=== PATIENT | male | born 1945 | race Caucasian/White ===

== ENCOUNTER 2024-10-10 17:31 | Inpatient (IN) | payer MEDICARE, SELFPAY ==
[~2024-10-10] VITALS: Ht 175.3 cm; Wt 99.0 kg
[2024-10-10 18:19] LABS: VENOUS BASE EXCESS -9.4 (-2.0-2.0); VENOUS O2 SATURATION 83.4 % (60.0-80.0); VENOUS PARTIAL PRESSURE CO2 39.4 mmHg (38.0-50.0); VENOUS PARTIAL PRESSURE O2 56.5 mmHg (30.0-50.0); VENOUS PH 7.254 UNITS (7.330-7.430); VENOUS STANDARD HCO3 16.8 MMOL/L; VENOUS TOTAL CO2 18.3 MMOL/L (24.0-28.0)
[2024-10-10 18:24] LABS: BASO % 0.2 % (0.0-1.0); EOS % 0.1 % (0.0-3.0); HEMATOCRIT 51.1 % (42.0-52.0); HEMOGLOBIN 17.3 g/dl (13.5-17.5); LYMPH # 0.7 10^3/uL (1.5-5.0); LYMPH % 4.9 % (24.0-44.0); MEAN CORPUSCULAR HGB CONC 33.9 g/dl (32.0-36.5); MEAN CORPUSCULAR VOLUME 94.6 fl (80.0-96.0); MONO # 1.5 10^3/uL (0.0-0.8); MONO % 9.8 % (2.0-8.0); NEUTROPHILS # 12.5 10^3/uL (1.5-8.5); NEUTROPHILS % 84.5 % (36.0-66.0); PLATELET COUNT, AUTOMATED 224 10^3/uL (150-450); WHITE BLOOD COUNT 14.8 10^3/uL (4.0-10.0)
[2024-10-10] MEDS: NS (Normal Saline) 0.9% 1,000 ML IV SCH (19:31)
[2024-10-10] MEDS: BOOSTRIX VACCINE (TETANUS/DIPHTH/ACEL. PERTUSSIS) 0.5ML SYR IM.IMMUN ONE (19:31)
[2024-10-10 19:55] LABS: KETONE, URINE AUTO RFX TRACE mg/dL (NEGATIVE); LEUKOCYTE ESTERASE UR AUTO RFX NEGATIVE (NEGATIVE); MUCUS, URINE RFX SMALL (NEGATIVE); NITRITE, URINE AUTO RFX NEGATIVE (NEGATIVE); RBC, URINE AUTO RFX 6 /HPF (0-3); SQUAM EPITHELIAL CELL UR AURFX 0 /HPF (0-6); WBC, URINE AUTO RFX 2 /HPF (0-3)
[2024-10-10] MEDS: CALCIUM GLUCONATE 1,000 MG in DEXTROSE 5% (D5W) MINI-BAG PLU 100 ML IV ONE (22:00)
[2024-10-10] MEDS: NS 500 ML IV ONE (22:00)
[2024-10-10 23:16] LABS: ETHYL ALCOHOL (ETHANOL) < 0.003 % (0.000-0.010)
[2024-10-10 23:18] LABS: SALICYLATE LEVEL < 3.0 MG/DL (<30)
[2024-10-10 23:29] LABS: OSMOLALITY SERUM 316 MOSM/KG (280-301)
[2024-10-10] MEDS ORDERED: CHOL25TA8 PO (23:34)
[2024-10-10] MEDS ORDERED: ATOR1TAB21 PO (23:34)
[2024-10-10] MEDS ORDERED: DICL100G10 TOP (23:34)
[2024-10-10] MEDS ORDERED: ELIQ5TAB PO (23:34)
[2024-10-10] MEDS ORDERED: VITA200012 PO (23:34)
[2024-10-10] MEDS ORDERED: CYAN100049 PO (23:34)
[2024-10-10] MEDS ORDERED: METF-415 PO (23:34)
[2024-10-10] MEDS ORDERED: METO50TA7 PO (23:34)
[2024-10-10] MEDS ORDERED: JARD1TAB3 PO (23:34)
[2024-10-10] MEDS ORDERED: REFR0.5D8 OU (23:34)
[2024-10-10] MEDS ORDERED: SEMA0.257 SQ (23:34)
[2024-10-10] MEDS ORDERED: HOME MED LIST COMPLETE! XX SCH (23:35)
[2024-10-10] MEDS ORDERED: MED REC COMMENT (23:35)
[2024-10-10 23:47] LABS: ALBUMIN 3.5 G/DL (3.2-5.2); ALKALINE PHOSPHATASE 77 U/L (40-129); ALT/SGPT 95 U/L (7.0-40); AST/SGOT 457 U/L (<34); BILIRUBIN,DIRECT 0.9 MG/DL (<0.4); BILIRUBIN,TOTAL 2.2 MG/DL (0.3-1.2); BLOOD UREA NITROGEN 51 MG/DL (9-23); CALCIUM LEVEL 8.8 MG/DL (8.3-10.6); CARBON DIOXIDE LEVEL 20 MMOL/L (20-31); CHLORIDE LEVEL 95 MMOL/L (98-107); CPK CREATINE PHOSPHOKINASE 18716 U/L (46-171); CREATININE FOR GFR 2.28 MG/DL (0.70-1.30); GLOMERULAR FILTRATION RATE 29.5 (>35); GLUCOSE, FASTING 457 MG/DL (74-106); MAGNESIUM LEVEL 2.5 MG/DL (1.8-2.4); POTASSIUM SERUM 4.8 MMOL/L (3.5-5.1); SODIUM LEVEL 132 MMOL/L (136-145); THYROID STIMULATING HORMONE 1.318 uIU/ML (0.55-4.78); TOTAL PROTEIN 6.6 G/DL (5.7-8.2)
[2024-10-11] VITALS (9 sets, daily range): BP systolic 117–160; BP diastolic 82–114; TEMP 98.2–98.6; O2SAT 86–94
[2024-10-11] MEDS ORDERED: ACETAMINOPHEN 325 MG TAB PO PRN (00:15)
[2024-10-11] MEDS ORDERED: LORazepam 2 MG TAB PO PRN (00:15)
[2024-10-11] MEDS ORDERED: MAALOX 30 ML SUSP *UDC PO PRN (00:15)
[2024-10-11] MEDS ORDERED: MOM 30ML SUSPENSION UDC PO PRN (00:15)
[2024-10-11] MEDS: THIAMINE 100 MG TAB PO SCH (01:01)
[2024-10-11] MEDS: LR 1,000 ML IV SCH ×2 (01:01→12:53)
[2024-10-11] MEDS: NS (Normal Saline) 0.9% 1,000 ML IV ONE (05:52)
[2024-10-11] MEDS ORDERED: GLUCAGON INJ 1MG VIAL SC PRN (06:00)
[2024-10-11] MEDS ORDERED: GLUCOSE 4 GM CHEW PO PRN (06:00)
[2024-10-11] MEDS ORDERED: DEXTROSE 50% 50ML SYRINGE IV PRN (06:00)
[2024-10-11] MEDS ORDERED: NS (Normal Saline) 0.9% 1,000 ML IV SCH (07:40)
[2024-10-11 08:01] LABS: HEMATOCRIT 50.3 % (42.0-52.0); HEMOGLOBIN 17.4 g/dl (13.5-17.5); MEAN CORPUSCULAR HEMOGLOBIN 32.8 pg (27.0-33.0); MEAN CORPUSCULAR HGB CONC 34.6 g/dl (32.0-36.5); MEAN CORPUSCULAR VOLUME 94.7 fl (80.0-96.0); PLATELET COUNT, AUTOMATED 183 10^3/uL (150-450); RED BLOOD COUNT 5.31 10^6/uL (4.30-6.10); WHITE BLOOD COUNT 12.1 10^3/uL (4.0-10.0)
[2024-10-11 08:13] LABS: INR 1.22; PARTIAL THROMBOPLASTIN TIME 28.1 SECONDS (24.8-34.2); PROTHROMBIN TIME 15.7 SECONDS (12.5-14.5)
[2024-10-11 08:24] LABS: ALBUMIN 3.3 G/DL (3.2-5.2); BILIRUBIN,TOTAL 1.7 MG/DL (0.3-1.2); C REACTIVE PROTEIN QUANTITATIV 23.81 MG/DL (<1.0); CALCIUM LEVEL 8.5 MG/DL (8.3-10.6); CK-MB VALUE MASS 38.5 NG/ML (<3.6); CREATININE FOR GFR 2.1 MG/DL (0.70-1.30); GLOMERULAR FILTRATION RATE 32.4 (>35); POTASSIUM SERUM 4.8 MMOL/L (3.5-5.1); TOTAL PROTEIN 6.6 G/DL (5.7-8.2)
[2024-10-11 08:33] LABS: PROCALCITONIN 1.13 ng/ml
[2024-10-11] MEDS: INSULIN LISPRO (NovoLOG) PER UNIT SC SCH ×2 (08:40→20:09)
[2024-10-11 08:41] LABS: MB/CK RELATIVE INDEX 0.34 (< OR =4)
[2024-10-11] MEDS: DOCUSATE SODIUM 100MG CAPSULE PO SCH (08:44)
[2024-10-11] MEDS: ATORVASTATIN 20 MG TAB PO SCH (08:45)
[2024-10-11] MEDS: CYANOCOBALAMIN 500 MCG TAB PO SCH (08:45)
[2024-10-11] MEDS: FOLIC ACID 1MG TAB PO SCH (08:45)
[2024-10-11] MEDS: APIXABAN 2.5 MG TAB (ELIQUIS) PO SCH (08:45)
[2024-10-11] MEDS: MULTIVITAMINS/MINERALS THERAP 1 TAB PO SCH (08:45)
[2024-10-11] MEDS: DAPAGLIFLOZIN PROPANEDIOL 10MG TABLET (FARXIGA) PO SCH (08:45)
[2024-10-11] MEDS: METOPROLOL TART 50 MG TAB PO SCH ×2 (08:45→21:00)
[2024-10-11] MEDS ORDERED: LanTUS (INSULIN GLARGINE INJ) 1 UNITS/0.01 ML SC SCH (09:00)
[2024-10-11 12:43] LABS: CK-MB VALUE MASS 48.8 NG/ML (<3.6)
[2024-10-11] MEDS: cefTRIAXone SOD 1 GM in DEXTROSE 5% (D5W) ADV/MINI-BAG 50 ML IV SCH (12:53)
[2024-10-11 13:03] LABS: MB/CK RELATIVE INDEX 0.44 (< OR =4)
[2024-10-11] MEDS: ASPIRIN 81MG ENTERIC TABLET PO SCH (13:55)
[2024-10-11] MEDS: DOXYCYCLINE HYCLATE 100MG TABLET PO SCH (13:55)
[2024-10-11] MEDS: LanTUS (INSULIN GLARGINE INJ) 1 UNITS/0.01 ML SC SCH (14:04)
[2024-10-11 14:37] LABS: CHOLESTEROL RISK RATIO 4.15 (<5); HDL CHOLESTEROL 35.9 MG/DL (>40); LDL CHOLESTEROL 68.7 MG/DL (<100); NON-HDL-C 113.1 MG/DL
[2024-10-11 14:49] LABS: HEMOGLOBIN A1c 7.6 % (4.0-6.0)
[2024-10-11] MEDS: hydrALAZINE 20MG/ML 1ML VIAL IV ONE (17:27)
[2024-10-11 18:33] LABS: ABG BASE EXCESS -3.3 (-2.0-2.0); ABG HCO3 17.5 MMOL/L (22.0-26.0); ABG O2 SATURATION 89.9 % (95.0-99.0); ABG PARTIAL PRESSURE CO2 23.6 mmHg (35.0-45.0); ABG STANDARD HCO3 21.5 MMOL/L. (22.0-26.0); ABG TOTAL CO2 18.2 MMOL/L (23.0-31.0); ABG pH (ARTERIAL) 7.488 UNITS (7.350-7.450)
[2024-10-11] MEDS: FUROSEMIDE 100MG/10ML VIAL IV ONE (21:23)
[2024-10-11 23:38] LABS: CALCIUM LEVEL 8.5 MG/DL (8.3-10.6); CK-MB VALUE MASS 27.4 NG/ML (<3.6); CREATININE FOR GFR 1.76 MG/DL (0.70-1.30); GLOMERULAR FILTRATION RATE 39.8 (>35); PHOSPHORUS LEVEL 4.6 MG/DL (2.4-5.1); POTASSIUM SERUM 4.2 MMOL/L (3.5-5.1)
[2024-10-11 23:57] LABS: MB/CK RELATIVE INDEX 0.39 (< OR =4)
[2024-10-12] VITALS (29 sets, daily range): BP systolic 100–136; BP diastolic 56–95; TEMP 98–99.2; O2SAT 85–98
[2024-10-12 03:46] LABS: HEMATOCRIT 47.5 % (42.0-52.0); HEMOGLOBIN 16.4 g/dl (13.5-17.5); MEAN CORPUSCULAR HEMOGLOBIN 32.3 pg (27.0-33.0); MEAN CORPUSCULAR HGB CONC 34.5 g/dl (32.0-36.5); MEAN CORPUSCULAR VOLUME 93.5 fl (80.0-96.0); PLATELET COUNT, AUTOMATED 222 10^3/uL (150-450); RED BLOOD COUNT 5.08 10^6/uL (4.30-6.10)
[2024-10-12 04:09] LABS: ALBUMIN 2.9 G/DL (3.2-5.2); BILIRUBIN,TOTAL 1.4 MG/DL (0.3-1.2); CALCIUM LEVEL 8.5 MG/DL (8.3-10.6); CREATININE FOR GFR 1.81 MG/DL (0.70-1.30); GLOMERULAR FILTRATION RATE 38.5 (>35); POTASSIUM SERUM 4.2 MMOL/L (3.5-5.1); TOTAL PROTEIN 6.1 G/DL (5.7-8.2)
[2024-10-12 04:22] LABS: MB/CK RELATIVE INDEX 0.32 (< OR =4)
[2024-10-12] MEDS ORDERED: FUROSEMIDE 40MG/4ML VIAL IV SCH (09:00)
[2024-10-12] MEDS ORDERED: LanTUS (INSULIN GLARGINE INJ) 1 UNITS/0.01 ML SC SCH (09:00)
[2024-10-12] MEDS: FUROSEMIDE 40MG/4ML VIAL IV SCH (09:21)
[2024-10-12 13:47] LABS: ABG BASE EXCESS -1.8 (-2.0-2.0); ABG HCO3 20.3 MMOL/L (22.0-26.0); ABG O2 SATURATION 91.6 % (95.0-99.0); ABG PARTIAL PRESSURE CO2 28.5 mmHg (35.0-45.0); ABG PARTIAL PRESSURE O2 61.4 mmHg (75.0-100.0); ABG STANDARD HCO3 22.9 MMOL/L. (22.0-26.0); ABG TOTAL CO2 21.2 MMOL/L (23.0-31.0); ABG pH (ARTERIAL) 7.471 UNITS (7.350-7.450)
[2024-10-12] MEDS: FORMOTEROL FUMARATE 20 MCG/2 ML INHALATION SOLUTION (PERFOROMIST) INH SCH ×2 (13:51→19:36)
[2024-10-12] MEDS: GLYCOPYRROLATE INJ 0.2 MG/ML 2 ML VIAL NEB SCH ×2 (13:52→19:36)
[2024-10-12 16:24] LABS: HEPATITIS B SURFACE ANTIGEN NEGATIVE (NEGATIVE)
[2024-10-12 16:27] LABS: MB/CK RELATIVE INDEX 0.22 (< OR =4)
[2024-10-12 16:52] LABS: HEPATITIS B CORE ANTIBODY IGM NEGATIVE (NEGATIVE)
[2024-10-12] MEDS: GLYCOPYRROLATE INJ 0.2 MG/ML 2 ML VIAL NEB ONE (17:04)
[2024-10-12] MEDS: FORMOTEROL FUMARATE 20 MCG/2 ML INHALATION SOLUTION (PERFOROMIST) INH ONE (17:04)
[2024-10-12] MEDS: FUROSEMIDE 20MG/2ML VIAL IV SCH (17:47)
[2024-10-12] MEDS ORDERED: FORMOTEROL FUMARATE 20 MCG/2 ML INHALATION SOLUTION (PERFOROMIST) INH SCH (20:00)
[2024-10-12] MEDS ORDERED: GLYCOPYRROLATE INJ 0.2 MG/ML 2 ML VIAL NEB SCH (20:00)
[2024-10-13] VITALS (26 sets, daily range): BP systolic 111–142; BP diastolic 67–96; TEMP 97.4–98; O2SAT 88–98
[2024-10-13 06:19] LABS: HEMATOCRIT 45.7 % (42.0-52.0); HEMOGLOBIN 15.4 g/dl (13.5-17.5); MEAN CORPUSCULAR HEMOGLOBIN 31.7 pg (27.0-33.0); MEAN CORPUSCULAR HGB CONC 33.7 g/dl (32.0-36.5); PLATELET COUNT, AUTOMATED 188 10^3/uL (150-450); RED BLOOD COUNT 4.86 10^6/uL (4.30-6.10); WHITE BLOOD COUNT 7.8 10^3/uL (4.0-10.0)
[2024-10-13 06:39] LABS: ALBUMIN 2.7 G/DL (3.2-5.2); BILIRUBIN,TOTAL 1.6 MG/DL (0.3-1.2); CALCIUM LEVEL 9.2 MG/DL (8.3-10.6); CREATININE FOR GFR 1.38 MG/DL (0.70-1.30); GLOMERULAR FILTRATION RATE 52.6 (>35)
[2024-10-13] MEDS: LanTUS (INSULIN GLARGINE INJ) 1 UNITS/0.01 ML SC SCH (09:57)
[2024-10-14] VITALS (27 sets, daily range): BP systolic 118–145; BP diastolic 76–84; TEMP 96.7–98; O2SAT 88–96
[2024-10-14 06:20] LABS: HEMATOCRIT 46.6 % (42.0-52.0); HEMOGLOBIN 15.6 g/dl (13.5-17.5); MEAN CORPUSCULAR HEMOGLOBIN 32.2 pg (27.0-33.0); MEAN CORPUSCULAR HGB CONC 33.5 g/dl (32.0-36.5); MEAN CORPUSCULAR VOLUME 96.1 fl (80.0-96.0); PLATELET COUNT, AUTOMATED 181 10^3/uL (150-450); RED BLOOD COUNT 4.85 10^6/uL (4.30-6.10); WHITE BLOOD COUNT 8.5 10^3/uL (4.0-10.0)
[2024-10-14 06:40] LABS: ALBUMIN 2.6 G/DL (3.2-5.2); ALKALINE PHOSPHATASE 68 U/L (40-129); ALT/SGPT 70 U/L (7.0-40); AST/SGOT 98 U/L (<34); BILIRUBIN,TOTAL 1.5 MG/DL (0.3-1.2); BLOOD UREA NITROGEN 54 MG/DL (9-23); CALCIUM LEVEL 8.6 MG/DL (8.3-10.6); CARBON DIOXIDE LEVEL 26 MMOL/L (20-31); CHLORIDE LEVEL 101 MMOL/L (98-107); CREATININE FOR GFR 1.17 MG/DL (0.70-1.30); GLOMERULAR FILTRATION RATE > 60.0 (>35); GLUCOSE, FASTING 244 MG/DL (74-106); POTASSIUM SERUM 3.6 MMOL/L (3.5-5.1); SODIUM LEVEL 138 MMOL/L (136-145); TOTAL PROTEIN 5.8 G/DL (5.7-8.2)
[2024-10-14] MEDS: FUROSEMIDE 40MG/4ML VIAL IV SCH (17:40)
[2024-10-15] VITALS (26 sets, daily range): BP systolic 112–133; BP diastolic 65–88; TEMP 97–98.7; O2SAT 88–95
[2024-10-15 06:36] LABS: HEMOGLOBIN 15.8 g/dl (13.5-17.5); MEAN CORPUSCULAR HEMOGLOBIN 31.8 pg (27.0-33.0); MEAN CORPUSCULAR HGB CONC 32.2 g/dl (32.0-36.5); MEAN CORPUSCULAR VOLUME 98.6 fl (80.0-96.0); PLATELET COUNT, AUTOMATED 203 10^3/uL (150-450); RED BLOOD COUNT 4.97 10^6/uL (4.30-6.10); WHITE BLOOD COUNT 9.4 10^3/uL (4.0-10.0)
[2024-10-15 07:07] LABS: ALBUMIN 2.6 G/DL (3.2-5.2); ALKALINE PHOSPHATASE 73 U/L (40-129); ALT/SGPT 65 U/L (7.0-40); AST/SGOT 77 U/L (<34); BILIRUBIN,TOTAL 1.4 MG/DL (0.3-1.2); BLOOD UREA NITROGEN 58 MG/DL (9-23); CALCIUM LEVEL 8.9 MG/DL (8.3-10.6); CARBON DIOXIDE LEVEL 26 MMOL/L (20-31); CHLORIDE LEVEL 99 MMOL/L (98-107); CREATININE FOR GFR 1.07 MG/DL (0.70-1.30); GLOMERULAR FILTRATION RATE > 60.0 (>35); GLUCOSE, FASTING 246 MG/DL (74-106); POTASSIUM SERUM 3.5 MMOL/L (3.5-5.1); SODIUM LEVEL 139 MMOL/L (136-145)
[2024-10-15] MEDS: LanTUS (INSULIN GLARGINE INJ) 1 UNITS/0.01 ML SC SCH (08:31)
[2024-10-15 10:29] LABS: PROCALCITONIN 0.19 ng/ml
[2024-10-15] MEDS: CEFDINIR 300 MG CAP (OMNICEF) PO SCH (12:04)
[2024-10-16] VITALS (23 sets, daily range): BP systolic 114–140; BP diastolic 75–81; TEMP 97–98.6; O2SAT 88–98
[2024-10-16 07:06] LABS: HEMATOCRIT 48.6 % (42.0-52.0); HEMOGLOBIN 16.3 g/dl (13.5-17.5); MEAN CORPUSCULAR HGB CONC 33.5 g/dl (32.0-36.5); MEAN CORPUSCULAR VOLUME 95.3 fl (80.0-96.0); PLATELET COUNT, AUTOMATED 219 10^3/uL (150-450); WHITE BLOOD COUNT 9.7 10^3/uL (4.0-10.0)
[2024-10-16 07:54] LABS: ALBUMIN 2.8 G/DL (3.2-5.2); ALKALINE PHOSPHATASE 80 U/L (40-129); ALT/SGPT 67 U/L (7.0-40); AST/SGOT 62 U/L (<34); BILIRUBIN,TOTAL 1.7 MG/DL (0.3-1.2); BLOOD UREA NITROGEN 52 MG/DL (9-23); CALCIUM LEVEL 9.3 MG/DL (8.3-10.6); CARBON DIOXIDE LEVEL 26 MMOL/L (20-31); CHLORIDE LEVEL 99 MMOL/L (98-107); CREATININE FOR GFR 1.03 MG/DL (0.70-1.30); GLOMERULAR FILTRATION RATE > 60.0 (>35); GLUCOSE, FASTING 226 MG/DL (74-106); POTASSIUM SERUM 3.3 MMOL/L (3.5-5.1); SODIUM LEVEL 140 MMOL/L (136-145); TOTAL PROTEIN 6.3 G/DL (5.7-8.2)
[2024-10-16 07:56] LABS: CPK CREATINE PHOSPHOKINASE 313 U/L (46-171)
[2024-10-16] MEDS: LanTUS (INSULIN GLARGINE INJ) 1 UNITS/0.01 ML SC SCH (08:18)
[2024-10-16] MEDS: POTASSIUM CHLORIDE 10MEQ SR TABLET PO ONE ×2 (12:20→17:11)
[2024-10-16] MEDS ORDERED: traMADol 50 MG TAB PO PRN (13:15)
[2024-10-16] MEDS ORDERED: PILL CUTTER 1 EACH XX PRN (13:15)
[2024-10-16] MEDS: FUROSEMIDE 20 MG TAB PO SCH (17:11)
[2024-10-16] MEDS ORDERED: MYLASSUD PO (19:55)
[2024-10-16] MEDS ORDERED: INSUHUMDS SC ×2 (19:55)
[2024-10-16] MEDS ORDERED: THERTAB19 PO (19:55)
[2024-10-16] MEDS ORDERED: FOLI1TAB11 PO (19:55)
[2024-10-16] MEDS ORDERED: TRAM50TA2 PO (19:55)
[2024-10-16] MEDS ORDERED: MOM30SS2 PO (19:55)
[2024-10-16] MEDS ORDERED: ASPI81TAEC PO (19:55)
[2024-10-16] MEDS ORDERED: ACET32TAB PO (19:55)
[2024-10-16] MEDS ORDERED: PERF20NE2 INH (19:55)
[2024-10-16] MEDS ORDERED: FURO20TA2 PO (19:55)
[2024-10-16] MEDS ORDERED: GLYC5INJ NEB (19:55)
[2024-10-16] MEDS ORDERED: COLA100C5 PO (19:55)
[2024-10-16] MEDS ORDERED: INSULANT SC (19:55)
[2024-10-16] MEDS ORDERED: CEFD300CAP PO (19:57)
[2024-10-16] MEDS ORDERED: PROB250C PO (19:57)
[2024-10-17] VITALS (10 sets, daily range): BP systolic 134–138; BP diastolic 92–94; TEMP 97.5–98.3; O2SAT 88–93
[2024-10-17 07:20] LABS: HEMATOCRIT 45.1 % (42.0-52.0); HEMOGLOBIN 14.8 g/dl (13.5-17.5); MEAN CORPUSCULAR HEMOGLOBIN 31.7 pg (27.0-33.0); MEAN CORPUSCULAR HGB CONC 32.8 g/dl (32.0-36.5); MEAN CORPUSCULAR VOLUME 96.6 fl (80.0-96.0); PLATELET COUNT, AUTOMATED 247 10^3/uL (150-450); RED BLOOD COUNT 4.67 10^6/uL (4.30-6.10); WHITE BLOOD COUNT 9.2 10^3/uL (4.0-10.0)
[2024-10-17 07:45] LABS: ALBUMIN 2.7 G/DL (3.2-5.2); ALKALINE PHOSPHATASE 77 U/L (40-129); ALT/SGPT 61 U/L (7.0-40); AST/SGOT 50 U/L (<34); BILIRUBIN,TOTAL 1.8 MG/DL (0.3-1.2); BLOOD UREA NITROGEN 43 MG/DL (9-23); CALCIUM LEVEL 8.8 MG/DL (8.3-10.6); CARBON DIOXIDE LEVEL 30 MMOL/L (20-31); CHLORIDE LEVEL 98 MMOL/L (98-107); CREATININE FOR GFR 1.07 MG/DL (0.70-1.30); GLOMERULAR FILTRATION RATE > 60.0 (>35); GLUCOSE, FASTING 202 MG/DL (74-106); POTASSIUM SERUM 3.5 MMOL/L (3.5-5.1); SODIUM LEVEL 138 MMOL/L (136-145); TOTAL PROTEIN 5.9 G/DL (5.7-8.2)
== END 2024-10-17 09:19 | DRG 871 ==
LOC: EDBD 17:31 → M ED 17:31 → OBSVTOIN 10-11 00:13 → M ED INP 10-11 00:13 → M PCU 10-11 12:14
PROVIDERS: ADMIT Student in an Organized Health Care Education/Training Program; ATTEND Student in an Organized Health Care Education/Training Program
PROC: B246ZZZ Ultrasonography of Right and Left Heart (ICD-10-PCS; principal; 2024-10-11)
DX: A41.9 Sepsis, unspecified organism (principal); J96.01 Acute respiratory failure with hypoxia; I21.A1 Myocardial infarction type 2; J18.9 Pneumonia, unspecified organism; I50.33 Acute on chronic diastolic (congestive) heart failure; J69.0 Pneumonitis due to inhalation of food and vomit; M62.82 Rhabdomyolysis; N17.9 Acute kidney failure, unspecified; F10.139 Alcohol abuse with withdrawal, unspecified; I13.0 Hypertensive heart and chronic kidney disease with heart failure and stage 1 through stage 4 chronic kidney disease, or unspecified chronic kidney disease; S32.019A Unspecified fracture of first lumbar vertebra, initial encounter for closed fracture; S22.43XA Multiple fractures of ribs, bilateral, initial encounter for closed fracture; J90 Pleural effusion, not elsewhere classified; J98.11 Atelectasis; N18.9 Chronic kidney disease, unspecified; W01.0XXA Fall on same level from slipping, tripping and stumbling without subsequent striking against object, initial encounter; Y92.003 Bedroom of unspecified non-institutional (private) residence as the place of occurrence of the external cause; E11.22 Type 2 diabetes mellitus with diabetic chronic kidney disease; I48.91 Unspecified atrial fibrillation; E78.5 Hyperlipidemia, unspecified; R55 Syncope and collapse; R74.01 Elevation of levels of liver transaminase levels; G47.33 Obstructive sleep apnea (adult) (pediatric); J43.9 Emphysema, unspecified; E11.65 Type 2 diabetes mellitus with hyperglycemia; I71.21 Aneurysm of the ascending aorta, without rupture; E86.0 Dehydration; K70.10 Alcoholic hepatitis without ascites; I49.5 Sick sinus syndrome; L89.899 Pressure ulcer of other site, unspecified stage; Z79.01 Long term (current) use of anticoagulants; Z79.84 Long term (current) use of oral hypoglycemic drugs; Z79.899 Other long term (current) drug therapy; Z95.0 Presence of cardiac pacemaker; Z87.891 Personal history of nicotine dependence